=== PATIENT | female | born 1995 | race African-American/Black ===

== ENCOUNTER 2017-07-01 20:52 | Emergency (ER) | payer OTHER ==
[2017-07-01 21:17] VITALS: BP 140/72; PULSE 109; RESP 16; TEMP 101.6; O2SAT 99
[2017-07-01] MEDS ORDERED: SODIUM CHLOR 0.9% 1000 ML INJ 1,000 ML IV ONE (22:30)
[2017-07-01] MEDS ORDERED: ACETAMINOPHEN 325 MG TAB PO ONE (22:30)
[2017-07-01] MEDS ORDERED: SODIUM CHLORIDE 0.9% FLUSH 10 ML FLUSH IV FLUSH PRN (22:30)
--- NOTE | 2017-07-01 22:34 | PD ---
HPI Chief Complaint: Cold / Flu Symptoms Time Seen by Provider: 21:58 Travel History International Travel<30 days: No Contact w/Intl Traveler<30days: No Traveled to known affect area: No History of Present Illness HPI 21-year-old female here for evaluation of fevers, chills, generalized malaise, sore throat. Symptoms have been going on for 2 days. She took ibuprofen earlier this morning. She has a moderate diffuse headache. Sore throat is described as sharp, moderate, worse with swallowing. No cough. No abdominal pain, nausea, vomiting, diarrhea. No rash. No IVDU. PFSH Past Medical History Medical History: Denies Significant Hx Cardiovascular Problems: Yes (heart murmur) Diminished Hearing: No Immunizations Current: Yes Tetanus Vaccination: < 5 Years Influenza Vaccination: No ?: Not LMP: 06/25/2017 Social History Alcohol Use: Yes (OCCASIONAL) Tobacco Use: No Substance Use: Yes (CANNABIS) Allergies-Medications (Allergen,Severity, Reaction): Coded Allergies: No Known Allergies (Unverified , 07/01/17) Reported Meds & Prescriptions Reported Meds & Active Scripts Active Augmentin (Amoxicillin-Clavulanate) 875-125 Mg Tab 1 Tab PO BID 10 Days Review of Systems Except as stated in HPI: all other systems reviewed are Neg Physical Exam Narrative GENERAL: Well-developed, well-nourished, awake, alert, pleasant, no apparent distress. SKIN: Focused skin assessment warm/dry. No rash. HEAD: Atraumatic. Normocephalic. EYES: Pupils equal and round. No scleral icterus. No injection or drainage. ENT: No nasal bleeding or discharge. Mucous membranes pink and moist. Moderate bilateral tonsillar enlargement with erythema without exudates. Uvula is midline. Normal phonation. No drooling or stridor. NECK: Trachea midline. No JVD. No nuchal rigidity. CARDIOVASCULAR: Regular rate and rhythm. No murmur appreciated. RESPIRATORY: No accessory muscle use. Clear to auscultation. Breath sounds equal bilaterally. GASTROINTESTINAL: Abdomen soft, non-tender, nondistended. MUSCULOSKELETAL: No obvious deformities. No clubbing. No cyanosis. No edema. NEUROLOGICAL: Awake and alert. No obvious cranial nerve deficits. Motor grossly within normal limits. Normal speech. PSYCHIATRIC: Appropriate mood and affect; insight and judgment normal. Data Data Last Documented VS Vital Signs Date Time Temp Pulse Resp B/P (MAP) Pulse Ox O2 Delivery O2 Flow Rate FiO2 07/01/17 21:17 101.6 109 16 140/72 (94) 99 Orders Orders Group A Rapid Strep Screen (07/01/17 21:35) Strep Culture (Group A) (07/01/17 21:44) Complete Blood Count With Diff (07/01/17 22:27) Comprehensive Metabolic Panel (07/01/17 22:27) Urinalysis - C+S If Indicated (07/01/17 22:27) Iv Access Insert/Monitor (07/01/17 22:27) Ecg Monitoring (07/01/17 22:27) Oximetry (07/01/17 22:27) Sodium Chloride 0.9% Flush (Ns Flush) (07/01/17 22:30) Influenzae A/B Antigen (07/01/17 22:27) Ed Urine Pregnancytest Poc (07/01/17 22:27) Sodium Chlor 0.9% 1000 Ml Inj (Ns 1000 M (07/01/17 22:30) Acetaminophen (Tylenol) (07/01/17 22:30) Monoscreen (07/01/17 22:27) Ketorolac Inj (Toradol Inj) (07/02/17 00:00) Amoxicil-Clavulanate (Augmentin) (07/02/17 00:00) Ed Discharge Order (07/01/17 23:57) Labs Laboratory Tests Test 07/01/17 22:51 07/01/17 22:55 Urine Color YELLOW Urine Turbidity CLEAR Urine pH 6.0 Urine Specific [place] 1.020 Urine Protein NEG mg/dL Urine Glucose (UA) NEG mg/dL Urine Ketones NEG mg/dL Urine Occult Blood SMALL Urine Nitrite NEG Urine Bilirubin NEG Urine Urobilinogen 1.0 MG/DL Urine Leukocyte Esterase NEG Urine RBC 4 /hpf Urine WBC 1 /hpf Urine Squamous Epithelial Cells 1 /hpf Urine Mucus MOD /lpf Microscopic Urinalysis Comment CULT NOT INDICATED White Blood Count 14.1 TH/MM3 Red Blood Count 4.71 MIL/MM3 Hemoglobin 12.4 GM/DL Hematocrit 38.4 % Mean Corpuscular Volume 81.6 FL Mean Corpuscular Hemoglobin 26.3 PG Mean Corpuscular Hemoglobin Concent 32.2 % Red Cell Distribution Width 14.7 % Platelet Count 355 TH/MM3 Mean Platelet Volume 7.9 FL Neutrophils (%) (Auto) 83.0 % Lymphocytes (%) (Auto) 9.2 % Monocytes (%) (Auto) 7.3 % Eosinophils (%) (Auto) 0.2 % Basophils (%) (Auto) 0.3 % Neutrophils # (Auto) 11.7 TH/MM3 Lymphocytes # (Auto) 1.3 TH/MM3 Monocytes # (Auto) 1.0 TH/MM3 Eosinophils # (Auto) 0.0 TH/MM3 Basophils # (Auto) 0.0 TH/MM3 CBC Comment DIFF FINAL Differential Comment Blood Urea Nitrogen 9 MG/DL Creatinine 0.86 MG/DL Random Glucose 90 MG/DL Total Protein 7.9 GM/DL Albumin 3.8 GM/DL Calcium Level 8.7 MG/DL Alkaline Phosphatase 79 U/L Aspartate Amino Transf (AST/SGOT) 14 U/L Alanine Aminotransferase (ALT/SGPT) 22 U/L Total Bilirubin 0.3 MG/DL Sodium Level 141 MEQ/L Potassium Level 3.3 MEQ/L Chloride Level 106 MEQ/L Carbon Dioxide Level 24.6 MEQ/L Anion Gap 10 MEQ/L Estimat Glomerular Filtration Rate 103 ML/MIN Monoscreen NEG MDM Medical Decision Making Medical Screen Exam Complete: Yes Emergency Medical Condition: Yes Differential Diagnosis URI, influenza, strep pharyngitis, mono Narrative Course Initial vital signs show heart rate 109, blood pressure 140/72, pulse ox 99% on room air, oral temp of 1 1.6F. CBC: WBC 14.1, hemoglobin 12.4, hematocrit 38.4, platelets 355, neutrophils 83%. CMP is remarkable for potassium 3.3, otherwise unremarkable. UA is not suggestive of UTI. Influenza is negative. Group A strep is negative. Urine is negative. The patient was given a liter normal saline IV and Tylenol with effervescence. She is overall very well-appearing. No nuchal rigidity. Although her rapid strep is negative, her clinical exam appears consistent with strep pharyngitis. She has palatal petechiae. Her uvula is midline. Normal phonation. No evidence for peritonsillar abscess or deep space neck infection. Plan at this time is to start her on Augmentin. She was advised to keep the fever under control with Tylenol and ibuprofen and to stay hydrated with plenty fluids. PMD follow-up this week. She was informed on when to return to the emergency department. She verbalizes understanding and agreement with plan. Diagnosis Primary Impression: Pharyngitis Qualified Codes: J02.9 - Acute pharyngitis, unspecified Referrals: [facility] 3 days Primary Care Physician 3 days Additional Instructions: Follow-up with a primary care physician this week. Stay hydrated with plenty of fluids. Keep fever under control by alternating between Tylenol and ibuprofen every 3-4 hours. Take antibiotic as prescribed. Return to the emergency department for worsening symptoms or any other concerns. Scripts Amoxicillin-Clavulanate (Augmentin) 875-125 Mg Tab 1 TAB PO BID for Infection for 10 Days, #20 TAB 0 Refills Prov: Mann Washington MD 07/01/17 Disposition: 01 DISCHARGE HOME Condition: Stable Mann Washington MD July 01, 2017 22:34
[2017-07-01 23:05] LABS: AUTOMATED NEUTROPHIL # 11.7 TH/MM3 (1.8-7.7); BASOPHIL % 0.3 % (0.0-2.0); EOSINOPHIL % 0.2 % (0.0-4.0); HEMATOCRIT 38.4 % (35.0-46.0); HEMOGLOBIN 12.4 GM/DL (11.6-15.3); LYMPH % 9.2 % (9.0-44.0); LYMPHOCYTE # 1.3 TH/MM3 (1.0-4.8); MEAN CELL VOLUME 81.6 FL (80.0-100.0); MEAN CORPUSCULAR HEMOGLOBIN 26.3 PG (27.0-34.0); MEAN CORPUSCULAR HGB CONC 32.2 % (32.0-36.0); MEAN PLATELET VOLUME 7.9 FL (7.0-11.0); MONO % 7.3 % (0.0-8.0); PLATELET COUNT 355 TH/MM3 (150-450); RED BLOOD COUNT 4.71 MIL/MM3 (4.00-5.30); RED CELL DISTRIBUTION WIDTH 14.7 % (11.6-17.2); WHITE BLOOD COUNT 14.1 TH/MM3 (4.0-11.0)
[2017-07-01 23:28] LABS: BILIRUBIN, URINE NEG (NEG); BLOOD, URINE SMALL (NEG); GLUCOSE,URINE NEG (NEG); KETONE, URINE NEG (NEG); NITRITE,URINE NEG (NEG); URINE COLOR YELLOW (YELLW/STRAW); URINE LEUKOCYTE ESTERASE NEG (NEG)
[2017-07-01 23:30] LABS: ALBUMIN 3.8 GM/DL (3.4-5.0); AST (GOT) 14 U/L (16-38); BICARBONATE 24.6 MEQ/L (21.0-32.0); BLOOD UREA NITROGEN 9 MG/DL (7-18); CALCIUM 8.7 MG/DL (8.5-10.1); CHLORIDE 106 MEQ/L (98-107); CREATININE 0.86 MG/DL (0.50-1.00); GLOMERULAR FILTRATION RATE 103 ML/MIN (>89); GLUCOSE,RANDOM 90 MG/DL (74-106); SODIUM (NA) 141 MEQ/L (136-145)
[2017-07-01 23:33] LABS: ALKALINE PHOSPHATASE 79 U/L (45-117); ALT (GPT) 22 U/L (9-42); TOTAL BILIRUBIN ADULT 0.3 MG/DL (0.2-1.0); TOTAL PROTEIN 7.9 GM/DL (6.4-8.2)
[2017-07-01 23:37] LABS: MONOSCREEN NEG (NEG)
[2017-07-01] MEDS ORDERED: AUGM875T3 PO (23:54)
[2017-07-01 23:55] LABS: MUCUS URINE MOD /lpf (OCC); SQUAMOUS EPITHELIAL CELL URINE 1 /hpf (0-5)
[2017-07-02] MEDS ORDERED: KETOROLAC TROMETHAMINE 30 MG/ML (IVP) VIAL IV PUSH ONE
[2017-07-02] MEDS ORDERED: AMOXICILLIN/CLAVULANATE K 875 MG TAB PO ONE
== END 2017-07-02 00:09 | disposition home or self-care (01) ==
LOC: NEPD 20:52
DX: J02.9 Acute pharyngitis, unspecified (principal); F12.90 Cannabis use, unspecified, uncomplicated
CPT/HCPCS: 80053; 81001; 84703; 85025; 86308; 87081; 87804; 87880; 96361; 96374; 99284; J1885; J7030